=== PATIENT | male | born 1955 | race Caucasian/White ===

== ENCOUNTER → 2021-06-16 | Outpatient (CLI) | payer OTHER, SELFPAY ==
--- NOTE | 2021-06-16 14:41 | EKG12_ITS ---
Test Reason : PRE-OP Blood Pressure : / mmHG Vent. Rate : 069 BPM Atrial Rate : 069 BPM P-R Int : 182 ms QRS Dur : 076 ms QT Int : 358 ms P-R-T Axes : 044 033 036 degrees QTc Int : 383 ms Sinus rhythm with occasional Premature ventricular complexes Otherwise normal ECG Confirmed by LUIGI SEGOVIA, [place] ([id number]), science editor REID MCCAULEY ([id number]) on 06/17/2021 10:16:10 AM Referred By: Vitaly Mcclain Confirmed By:INDIA MEYERS MD
[2021-06-16 16:17] LABS: Anion Gap 3 (5-15); BUN 22 mg/dL (7-18); BUN/Creat Ratio 22.9 RATIO (10-20); Calcium,Total 8.6 mg/dL (8.5-10.1); Chloride 106 mmol/L (98-107); Creatinine, Serum 0.96 mg/dL (0.70-1.30); EST Glomerular Filtration Rate 83 mL/min (>60); Est Glom Filt Rate - Afr Amer 100 mL/min (>60); Glucose 84 mg/dL (74-106); Potassium 4.3 mmol/L (3.5-5.1); Sodium Level 138 mmol/L (136-145)
== END | disposition home or self-care (01) ==
PROVIDERS: PCP Family Medicine; Referring Provider Otolaryngology; Visit Provider Otolaryngology
DX: Z01.818 Encounter for other preprocedural examination (principal)
CPT/HCPCS: 36415; 80048; 93005